=== PATIENT | male | born 1995 | race Caucasian/White ===

== ENCOUNTER 2021-09-22 16:23 | Emergency (ER) | payer MEDICAID ==
[2021-09-22] MEDS ORDERED: Ketorolac 60 MG/2 ML SDV IM ONE (19:06)
[2021-09-22 19:45] LABS: BLOOD UREA NITROGEN,BUN 11 mg/dL (7.0-18.0); CARBON DIOXIDE,CO2 29.2 mmol/L (21.0-32.0); CHLORIDE,CL 104 mmol/L (98-107); GLUCOSE RANDOM 86 mg/dL (74-106); LIPASE 87 U/L (73-393); POTASSIUM,K 4.3 mmol/L (3.5-5.1); SODIUM,NA 140 mmol/L (136-148)
[2021-09-22 20:04] LABS: CORONAVIRUS COVID-19 NAA NEGATIVE (NEGATIVE); INFLUENZA A NAA NEGATIVE (NEGATIVE); INFLUENZA B NAA NEGATIVE (NEGATIVE)
== END 2021-09-22 20:38 | disposition home or self-care (01) ==
LOC: MW.ED 16:23
DX: H53.8 Other visual disturbances (principal); E11.9 Type 2 diabetes mellitus without complications; I10 Essential (primary) hypertension; Z20.822 Contact with and (suspected) exposure to COVID-19; Z91.048 Other nonmedicinal substance allergy status; Z79.84 Long term (current) use of oral hypoglycemic drugs
CPT/HCPCS: 0240U; 36415; 80053; 82947; 83690; 83735; 85025; 85379; 85610; 96372; 99284; J1885

== ENCOUNTER 2021-10-04 18:48 | Emergency (ER) | payer MEDICAID ==
[2021-10-04 20:04] LABS: BLOOD UREA NITROGEN,BUN 10 mg/dL (7.0-18.0); CARBON DIOXIDE,CO2 27.2 mmol/L (21.0-32.0); CHLORIDE,CL 105 mmol/L (98-107); GLUCOSE RANDOM 115 mg/dL (74-106); SODIUM,NA 142 mmol/L (136-148)
== END 2021-10-04 20:23 | disposition home or self-care (01) ==
LOC: MW.ED 18:48
DX: F41.9 Anxiety disorder, unspecified (principal); R42 Dizziness and giddiness; I10 Essential (primary) hypertension; E11.9 Type 2 diabetes mellitus without complications; Z91.048 Other nonmedicinal substance allergy status; Z79.84 Long term (current) use of oral hypoglycemic drugs
CPT/HCPCS: 36415; 80053; 85025; 93005; 99283; 99284-25

== ENCOUNTER 2021-11-03 21:33 | Emergency (ER) | payer MEDICAID ==
[2021-11-03] MEDS ORDERED: Sodium Chloride 0.9% 2.5 ML Syringe FLUSH PRN (21:48)
[2021-11-03] MEDS ORDERED: Sodium Chloride 0.9% 10 ML Syringe FLUSH PRN (21:48)
[2021-11-03 22:16] LABS: BLOOD UREA NITROGEN,BUN 21 mg/dL (7.0-18.0); CARBON DIOXIDE,CO2 29.5 mmol/L (21.0-32.0); CHLORIDE,CL 103 mmol/L (98-107); GLUCOSE RANDOM 72 mg/dL (74-106); POTASSIUM,K 3.7 mmol/L (3.5-5.1); SODIUM,NA 142 mmol/L (136-148)
[2021-11-03] MEDS ORDERED: Ketorolac 30 MG/ML SDV IVPUSH ONE (23:10)
[2021-11-04] MEDS ORDERED: fentaNYL 50 MCG/ML SDV IVPUSH ONE (00:06)
[2021-11-04] MEDS ORDERED: Ondansetron 4 MG/2 ML SDV IVPUSH ONE (00:07)
== END 2021-11-04 00:35 | disposition home or self-care (01) ==
LOC: MW.ED 21:33
DX: S06.0X9A Concussion with loss of consciousness of unspecified duration, initial encounter (principal); F44.81 Dissociative identity disorder; I10 Essential (primary) hypertension; E11.9 Type 2 diabetes mellitus without complications; Z91.048 Other nonmedicinal substance allergy status; Z79.84 Long term (current) use of oral hypoglycemic drugs; W18.30XA Fall on same level, unspecified, initial encounter
CPT/HCPCS: 36415; 70450; 72125; 72128; 72131; 80053; 85025; 96374; 96375; 99284; J1885; J2405; J3010; J3490

== ENCOUNTER 2021-11-22 16:42 | Emergency (ER) | payer MEDICAID ==
[2021-11-22] MEDS ORDERED: Ketorolac 30 MG/ML SDV IVPUSH ONE (17:51)
== END 2021-11-22 18:29 | disposition home or self-care (01) ==
LOC: MW.ED 16:42
DX: S09.90XA Unspecified injury of head, initial encounter (principal); S19.9XXA Unspecified injury of neck, initial encounter; S29.9XXA Unspecified injury of thorax, initial encounter; I10 Essential (primary) hypertension; E11.9 Type 2 diabetes mellitus without complications; Z91.048 Other nonmedicinal substance allergy status; Z79.84 Long term (current) use of oral hypoglycemic drugs; Z79.899 Other long term (current) drug therapy; W01.0XXA Fall on same level from slipping, tripping and stumbling without subsequent striking against object, initial encounter
CPT/HCPCS: 70450; 72125; 72128; 96374; 99284; J1885

== ENCOUNTER 2021-12-02 13:47 | Emergency (ER) | payer MEDICAID | END 2021-12-02 16:55 | disposition home or self-care (01) | LOC: MW.ED 13:47 | DX: S06.9X9A Unspecified intracranial injury with loss of consciousness of unspecified duration, initial encounter (principal); S20.214A Contusion of middle front wall of thorax, initial encounter; E11.9 Type 2 diabetes mellitus without complications; I10 Essential (primary) hypertension; Z91.048 Other nonmedicinal substance allergy status; Z79.84 Long term (current) use of oral hypoglycemic drugs; W20.8XXA Other cause of strike by thrown, projected or falling object, initial encounter | CPT/HCPCS: 70450; 70450-26; 71046; 71046-26; 72125; 72125-26; 99284-25 ==

== ENCOUNTER 2022-01-06 17:27 | Emergency (ER) | payer MEDICAID ==
[2022-01-06] MEDS ORDERED: Acetaminophen 500 MG Tab PO ONE (17:50)
== END 2022-01-06 19:14 | disposition home or self-care (01) ==
LOC: MW.ED 17:27
DX: G89.29 Other chronic pain (principal); M54.9 Dorsalgia, unspecified; E11.9 Type 2 diabetes mellitus without complications; I10 Essential (primary) hypertension; Z91.048 Other nonmedicinal substance allergy status; Z79.84 Long term (current) use of oral hypoglycemic drugs; R29.6 Repeated falls
CPT/HCPCS: 70450; 72125; 72128; 72131; 99283; A9270

== ENCOUNTER 2022-01-13 19:19 | Emergency (ER) | payer MEDICAID ==
[2022-01-13] MEDS ORDERED: Naproxen 500 MG Tab PO ONE (20:19)
== END 2022-01-13 20:26 | disposition home or self-care (01) ==
LOC: MW.ED 19:19
DX: S20.212A Contusion of left front wall of thorax, initial encounter (principal); S40.012A Contusion of left shoulder, initial encounter; I10 Essential (primary) hypertension; E11.9 Type 2 diabetes mellitus without complications; Z91.048 Other nonmedicinal substance allergy status; Z79.899 Other long term (current) drug therapy; Z79.84 Long term (current) use of oral hypoglycemic drugs; W22.8XXA Striking against or struck by other objects, initial encounter
CPT/HCPCS: 71045; 73030; 99283; A9270

== ENCOUNTER 2022-01-31 17:36 | Emergency (ER) | payer MEDICAID | END 2022-01-31 18:33 | disposition home or self-care (01) | LOC: MW.ED 17:36 | DX: S99.921A Unspecified injury of right foot, initial encounter (principal); I10 Essential (primary) hypertension; E11.9 Type 2 diabetes mellitus without complications; Z91.048 Other nonmedicinal substance allergy status; Z79.84 Long term (current) use of oral hypoglycemic drugs; W18.30XA Fall on same level, unspecified, initial encounter; Y92.009 Unspecified place in unspecified non-institutional (private) residence as the place of occurrence of the external cause | CPT/HCPCS: 73630-26-RT; 73630-RT; 99283 ==

== ENCOUNTER 2022-03-13 21:55 | Emergency (ER) | payer MEDICAID | END 2022-03-13 22:08 | disposition home or self-care (01) | LOC: MW.ED 21:55 | DX: F32.A Depression, unspecified (principal) | CPT/HCPCS: 99283; 99284 ==